=== PATIENT | female | born 2000 | race Two or more races ===

== ENCOUNTER 2024-01-31 16:20 | Inpatient (IN) | payer OTHER ==
[2024-01-31] MEDS: ELECTROLYTE-148 SOLN 1,000 ML IV SCH (17:45)
[2024-01-31 18:27] LABS: BASO % 0.3 % (0-2.0); HEMATOCRIT 35.9 % (32.4-45.2); LYMPH % 13.4 % (8-40); MCH 29.4 pg (25.7-33.7); MCHC 33.6 g/dl (32.0-36.0); MEAN CELL VOLUME 87.6 fl (80-96); MEAN PLT VOLUME 8.8 fl (7.5-11.1); MONO % 5.7 % (3.8-10.2); NEUT % 80.6 % (42.8-82.8); PLATELET COUNT 278 10^3/uL (134-434); RDW 13.7 % (11.6-15.6)
[2024-01-31 18:35] LABS: INR 0.95 (0.83-1.09); PROTHROMBIN TIME (PATIENT) 10.8 SEC (9.7-13.0)
[2024-01-31 18:38] LABS: ACTIVATED PTT 28.6 SECONDS (25.2-36.5)
[2024-01-31 18:43] VITALS: BMI 34.2
[2024-01-31 18:44] LABS: POTASSIUM 3.7 mmol/L (3.5-5.1)
[2024-01-31 18:46] LABS: BLOOD UREA NITROGEN 8.7 mg/dL (7-18)
[2024-01-31] MEDS ORDERED: FENTANYL/BUPIVACAINE/NS/PF - PCEA - 50 ML DISP.SYRIN EP ONE (18:49)
[2024-01-31 18:50] LABS: CREATININE 0.7 mg/dL (0.55-1.3)
[2024-01-31] MEDS ORDERED: NALOXONE HCL 0.4 MG/ML VIAL IVPUSH PRN (18:55)
[2024-01-31] MEDS: FENTANYL/BUPIVACAINE/NS/PF - PCEA - 50 ML DISP.SYRIN EP SCH (19:15)
[2024-01-31 19:41] LABS: HIV INTERPRETATION NEGATIVE (NEGATIVE)
[2024-01-31] MEDS ORDERED: OXYTOCIN 20 UNITS in 0.9% NS 20 UNIT/1,000 ML INFUS.BAG IV ONE (22:15)
[2024-01-31] MEDS ORDERED: LIDOCAINE HCL 1% PRESERVATIVE FREE - 30ML VIAL ONE (22:15)
[2024-01-31] MEDS ORDERED: IBUPROFEN 600 MG TABLET (FP) PO ONE (22:48)
[2024-01-31] MEDS: OXYTOCIN 20 UNITS in 0.9% NS 20 UNIT/1,000 ML INFUS.BAG IV SCH (22:51)
[2024-01-31] MEDS: IBUPROFEN 600 MG TABLET (FP) PO PRN (23:00)
[2024-01-31] MEDS ORDERED: BISACODYL 10 MG SUPP.RECT RC PRN (23:06)
[2024-01-31] MEDS ORDERED: METHYLERGONOVINE MALEATE 0.2 MG/1 ML AMP IM PRN (23:06)
[2024-01-31] MEDS ORDERED: oxyCODONE HCL 5 MG TABLET PO PRN (23:06)
[2024-01-31] MEDS ORDERED: BENZOCAINE 28 GM HEMORRHOIDAL OINTMENT TP PRN (23:06)
[2024-01-31] MEDS ORDERED: WITCH HAZEL 50% (TUCKS) 40 PAD/JAR PAD TP PRN (23:06)
[2024-02-01] MEDS: ACETAMINOPHEN 325 MG TABLET (FP) PO PRN (01:58)
[2024-02-01] MEDS: BENZOCAINE 20% 57 GM BOTTLE TP PRN (01:58)
[2024-02-01] MEDS ORDERED: OXYTOCIN 30 UNITS in 0.9% NS 30 UNIT/500 ML INFUS.BAG IVPB SCH (07:00)
[2024-02-01 07:32] LABS: BASO % 0.4 % (0-2.0); HEMATOCRIT 27.7 % (32.4-45.2); HEMOGLOBIN 9.4 GM/dL (10.7-15.3); LYMPH % 12.6 % (8-40); MCH 29.7 pg (25.7-33.7); MCHC 33.8 g/dl (32.0-36.0); MEAN CELL VOLUME 87.9 fl (80-96); MEAN PLT VOLUME 8.9 fl (7.5-11.1); MONO % 8.2 % (3.8-10.2); NEUT % 78.8 % (42.8-82.8); PLATELET COUNT 218 10^3/uL (134-434); RBC 3.15 M/mm3 (3.60-5.2); RDW 13.5 % (11.6-15.6); WHITE BLOOD COUNT 9.5 K/mm3 (4.0-10.0)
[2024-02-01] MEDS: FERROUS SO4 325 MG TABLET (FP) PO SCH (09:41)
[2024-02-01] MEDS: PRENATAL VITAMINS W/ FOLIC ACID TABLET (FP) PO SCH (09:41)
[2024-02-01] MEDS: FLU VACCINE (FLULAVAL) PF 60 MCG/0.5 ML SYRINGE 2023-2024 IM ONE (13:24)
[2024-02-02] MEDS: LEVOTHYROXINE NA 50 MCG TABLET (FP) PO SCH (06:35)
[2024-02-02] MEDS: SENNOSIDES/DOCUSATE COMBO (SENNA PLUS) TABLET (UD) PO PRN (22:07)
[2024-02-03 09:46] VITALS: BP 115/67; PULSE 90; RESP 17; TEMP 98
== END 2024-02-03 15:55 | disposition home or self-care (01) | DRG 560 ==
LOC: JLDR 16:20 → J3W 02-01 00:23
PROVIDERS: ADMIT Obstetrics & Gynecology Obstetrics; ATTEND Obstetrics & Gynecology Obstetrics
PROC: 10E0XZZ Delivery of Products of Conception, External Approach (ICD-10-PCS; principal; 2024-01-31)
PROC: 0KQM0ZZ Repair Perineum Muscle, Open Approach (ICD-10-PCS; 2024-01-31)
DX: O34.219 Maternal care for unspecified type scar from previous cesarean delivery (principal); O70.1 Second degree perineal laceration during delivery; O77.0 Labor and delivery complicated by meconium in amniotic fluid; Z3A.39 39 weeks gestation of pregnancy; Z37.0 Single live birth
CPT/HCPCS: 36415; 59409; 80048; 85025; 85610; 85730; 86780; 86850; 86900; 86901; 87389; 90686; G0008